=== PATIENT | female | born 1950 | race Caucasian/White ===

== ENCOUNTER → 2023-09-26 12:51 | Outpatient (REF) | payer MEDICARE, OTHER, SELFPAY | LOC: HWRAD 12:51 | PROVIDERS: ATTENDING PHYSICIAN Urology; FAMILY PHYSICIAN Family Medicine | DX: N39.0 Urinary tract infection, site not specified (principal); M62.89 Other specified disorders of muscle; N81.6 Rectocele; N30.10 Interstitial cystitis (chronic) without hematuria; L90.0 Lichen sclerosus et atrophicus | CPT/HCPCS: 76770; 76856 ==

== ENCOUNTER 2024-08-10 06:26 | Day surgery (SDC) | payer MEDICARE, OTHER, SELFPAY | END 2024-08-10 09:35 | disposition home or self-care (01) | LOC: GI 06:26 | PROVIDERS: ATTENDING PHYSICIAN Internal Medicine Gastroenterology; FAMILY PHYSICIAN Family Medicine | DX: R10.13 Epigastric pain (principal) | CPT/HCPCS: 43235 ==